=== PATIENT | male | born 1960 | race American Indian/Alaskan Native ===

== ENCOUNTER 2017-11-03 18:35 | Emergency (ER) | payer BC ==
[2017-11-03] MEDS ORDERED: Sodium Chloride 0.9% 10 ML Syringe FLUSH PRN (18:37)
[2017-11-03] MEDS ORDERED: Sodium Chloride 0.9% 2.5 ML Syringe FLUSH PRN (18:37)
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
[2017-11-03 18:51] VITALS: BP 128/82
[2017-11-03 19:11] LABS: CHLORIDE,CL 104 mmol/L (98-107); SODIUM,NA 140 mmol/L (136-148)
[2017-11-03] MEDS ORDERED: Aspirin 81 MG Tab.Chew PO ONE (20:08)
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
== END 2017-11-03 20:40 ==
LOC: MW.ED 18:35
DX: F10.129 Alcohol abuse with intoxication, unspecified (principal); V59.9XXA Occupant (driver) (passenger) of pick-up truck or van injured in unspecified traffic accident, initial encounter
CPT/HCPCS: 71045; 72040; 72170; 80053; 83690; 84484; 85025; 99285; A9270; G0480; 99284